=== PATIENT | female | born 1980 | race Caucasian/White ===

== ENCOUNTER → 2024-09-11 14:48 | Outpatient (BNVA) | payer OTHER, SELFPAY | PROVIDERS: Visit Provider Physician Assistant | DX: S30.861A Insect bite (nonvenomous) of abdominal wall, initial encounter (principal); W57.XXXA Bitten or stung by nonvenomous insect and other nonvenomous arthropods, initial encounter; Z02.79 Encounter for issue of other medical certificate | CPT/HCPCS: 99203 ==